=== PATIENT | male | born 1970 | race Caucasian/White ===

== ENCOUNTER → 2017-05-29 | Outpatient (CLI) | payer BC ==
[~2017-05-29] MED LIST: ALL100 PO; ALLO100T70 PO; AMO250 PO; ASP81 PO; ATOR10TA2 PO; ATR10 PO; CEP250 OP; DIP25 PO; IBU600 PO; LOSA-32 PO; LOSA-37 PO; LOSA100T62 PO; METO25TA93 PO; METXL50 PO; POTA25TA28 PO; ROS10 PO; VITORIN
--- NOTE | 2017-05-29 16:08 | RADIOLOGY IMAGING REPORT ---
FACILITY: [facility] PATIENT NAME: Robi Mauro : 1970 MR: [id number] V: [id number] EXAM DATE: ORDERING PHYSICIAN: SAMPSON OLSON TECHNOLOGIST: Location: [facility] Patient: Robi Mauro : 1970 Visit/Account:[id number] Date of Sevice: 05/29/2017 Venous Doppler ultrasound left lower extremity Indication: Leg pain after working out.. Comparison: None Available Findings: Duplex Doppler and color flow imaging was performed. The common femoral, femoral, and popl iteal veins are all patent and compressible with normal Doppler wave forms. There are normal respons es to augmentation. The posterior tibial and peroneal veins are patent in the calf. The proximal greater saphenous vein is also normal. Posterior aspect of the knee does show a Lewis's cyst and soft tissue measuring 3.7 x 1.1 x 1.0 cm. S ubcutaneous tissues are otherwise unremarkable. IMPRESSION: 1. No evidence of deep venous thrombosis of the left lower extremity. 2. Left Lewis's cyst. Report Dictated By: Charlie Wilson at 05/29/2017 4:02 PM Report E-Signed By: Charlie Wilson at 05/29/2017 4:03 PM WSN:[id number]
== END ==
LOC: US 15:11
PROVIDERS: ATTEND Orthopaedic Surgery
DX: M71.22 Synovial cyst of popliteal space [Baker], left knee (principal)

== ENCOUNTER → 2017-06-24 | Outpatient (CLI) | payer BC ==
[~2017-06-24] MED LIST changes: +ESCI20TA38 PO; +FLUT16SP19 NS; +LOSA25TA47 PO; +METO50TA19 PO
[2017-06-24 10:06] LABS: PLATELET COUNT, AUTOMATED 170 K/uL (150-450)
== END ==
LOC: LAB 09:54
PROVIDERS: ATTEND Emergency Medicine
DX: I10 Essential (primary) hypertension (principal); E83.52 Hypercalcemia; I25.10 Atherosclerotic heart disease of native coronary artery without angina pectoris; R25.2 Cramp and spasm
CPT/HCPCS: 36415; 82306; 82310; 82465; 83718; 83970; 84443; 84478; 85025

== ENCOUNTER → 2017-07-07 | Outpatient (CLI) | payer BC ==
[~2017-07-07] MED LIST changes: +ESCI10TA8 PO; +EZET10TA41 PO; +LOSA100T67 PO; +POTA-35 PO
== END ==
LOC: LAB 10:09
PROVIDERS: ATTEND Emergency Medicine
DX: E78.5 Hyperlipidemia, unspecified (principal)
CPT/HCPCS: 36415; 82465; 83718; 84478

== ENCOUNTER → 2017-07-21 | Outpatient (CLI) | payer BC | LOC: LAB 11:13 | PROVIDERS: ATTEND Emergency Medicine | DX: R14.0 Abdominal distension (gaseous) (principal) | CPT/HCPCS: 36415; 82784; 83516 ==

== ENCOUNTER 2017-11-24 12:13 | Emergency (ER) | payer BC ==
[~2017-11-24 12:13] MED LIST changes: +BENZ100C4 PO; +EVOL420W SUBQ; -LOSA100T67 PO; +LOSA100T69 PO; +OMEP40CA48 PO; +PRED-1 PO; +RAME8TAB43 PO; +ZALE5CAP PO
--- NOTE | 2017-11-24 12:36 | ER Report ---
History and Physical Time Seen By MD: 12:33 Hx. of Stated Complaint: PT REPORTS CHEST PAIN THAT STARTED AT 0200, TOOK 4 BABY ASPIRIN HPI/ROS CHIEF COMPLAINT: Chest pain HISTORY OF PRESENT ILLNESS: This is a 47-year-old male presents to the emergency department for chest pain. 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 Patient states that he did not become diaphoretic, no nausea or vomiting. Patient denies visual changes. He states that he does not feel that this is cardiac, he feels that this is more anxiety however with his cardiac history [facility] he decided to come in for further evaluation after he finished his shift. Patient denies chest pain or shortness of breath at this time. No recent illnesses. Patient states he was working out yesterday, vigorously with no chest pain or shortness of breath. REVIEW OF SYSTEMS: Constitutional: No fever, no chills. Eyes: No discharge. ENT: No sore throat. Cardiovascular: As above. Respiratory: No cough, no shortness of breath. Gastrointestinal: No abdominal pain, no vomiting. Genitourinary: No hematuria. Musculoskeletal: No back pain. Skin: No rashes. Neurological: No headache. Allergies: Coded Allergies: JEFFRY Inhibitors (Verified Allergy, Unknown, COUGH, 11/24/17) Home Meds Active Scripts Metoprolol Succinate (METOPROLOL SUCCINATE) 50 Mg Tab.er.24h, 1 TAB PO QDAY, #14 TAB 0 Refills Prov:VALERY ARREAGA MD 06/26/17 Allopurinol (ALLOPURINOL) 100 Mg Tablet, 100 MG PO PRN, #90 TAB 0 Refills Prov:VALERY ARREAGA MD 06/24/17 Reported Medications Potassium Citrate (POTASSIUM CITRATE) 10 Meq Tablet.er, 10 MEQ PO DAILY 06/27/17 Ezetimibe (ZETIA) 10 Mg Tablet, 10 MG PO DAILY, TAB 06/27/17 Escitalopram Oxalate (ESCITALOPRAM OXALATE) 10 Mg Tablet, 10 MG PO DAILY, TAB 06/27/17 Atorvastatin (LIPITOR (OR EQUIV)) 10 Mg Tab, 10 MG PO QHS 05/27/11 Aspirin (Childrens Chewable Aspirin) 81 Mg Chew, 81 MG PO QDAY 01/25/10 Discontinued Scripts Evolocumab (Repatha Pushtronex) 420 Mg/3.5 Ml Wear.injct, 420 MG SUBQ Q4WK, #3 EA 1 Refill Prov:VALERY ARREAGA MD 10/24/17 Zaleplon (SONATA) 5 Mg Capsule, 5 MG PO QHS, #30 CAPSULE 1 -2 tabs po qhs Prov:VALERY ARREAGA MD 10/06/17 Omeprazole (OMEPRAZOLE) 40 Mg Capsule.dr, 40 MG PO QDAY, #30 CAP Prov:VALERY ARREAGA MD 09/02/17 Benzonatate 100 Mg Cap (TESSALON PERLE 100 MG CAP) 100 Mg Capsule, 100 MG PO TID, #15 CAP Prov:VALERY ARREAGA MD 09/02/17 Prednisone 10 Mg Tab (PREDNISONE 10 MG TAB) 10 Mg Tablet, 4 TAB PO QDAY, #16 TAB Prov:VALERY ARREAGA MD 09/02/17 Fluticasone Prop 50 Mcg Ns (FLONASE 50 MCG NS) 16 Gm [place].susp, 2 SPRAYS NS QDAY, #1 BOT 3 Refills Prov:VALERY ARREAGA MD 06/24/17 Past Medical/Surgical History The patient has a past medical and surgical history of [facility] 2005, 2 stents placed, hypertension, hypercholesterolemia which are treated with medications at this time, orthopedic surgeries on knees and shoulder, appendectomy. Reviewed Nurses Notes: Yes Hx Smoking: No Smoking Status: Never Smoker Exposure to Second Hand Smoke?: Yes (mother smoked) Hx Substance Use Disorder: No Hx Alcohol Use: Yes (WEEKLY) Constitutional Vital Sign - Last 24 Hours 11/24/17 11/24/17 11/24/17 11/24/17 12:15 12:15 12:28 12:30 Temp 98.5 Pulse 84 79 Resp 16 7 B/P (MAP) 146/88 (107) 146/88 127/78 (94) Pulse Ox 94 93 O2 Delivery Room Air 11/24/17 11/24/17 11/24/17 11/24/17 12:43 12:58 13:00 13:13 Pulse 74 73 74 Resp 14 15 B/P (MAP) 128/81 (97) Pulse Ox 92 89 88 11/24/17 11/24/17 11/24/1718 13:28 13:30 13:43 13:48 Pulse 74 71 71 Resp 13 17 8 B/P (MAP) 120/77 (91) Pulse Ox 88 89 88 11/24/17 11/24/17 14:00 14:03 Pulse 68 Resp 22 B/P (MAP) 123/77 (92) 111/76 (88) Pulse Ox 93 Physical Exam General Appearance: The patient is alert, has no immediate need for airway protection and no signs of toxicity. Eyes: Pupils equal and round no pallor or injection. ENT, Mouth: Mucous membranes are moist. Respiratory: There are no retractions, lungs are clear to auscultation. Cardiovascular: Regular rate and rhythm, no murmurs, clicks or rubs. Gastrointestinal: Abdomen is soft and non tender, no masses, bowel sounds normal. Neurological: Alert and oriented 4. Moving all extremities. Following all com mands. No focal neuro deficits. Skin: Warm and dry, no rashes. Musculoskeletal: Neck is supple non tender. Extremities are nontender, nonswollen and have full range of motion. DIFFERENTIAL DIAGNOSIS: After history and physical exam differential diagnosis was considered for chest pain including but not limited to myocardial ischemia, pericarditis pulmonary embolus, chest wall pain, pleural inflammation and pulmonary infectious causes. Medical Decision Making Data Points Result Diagram: 11/24/17 1225 11/24/17 1225 Laboratory Hematology Test 11/24/17 12:25 Red Blood Count 5.76 M/uL (4.00-5.60) Mean Corpuscular Volume 85.0 fL (80.0-96.0) Mean Corpuscular Hemoglobin 29.3 pg (26.0-33.0) Mean Corpuscular Hemoglobin Concent 34.4 g/dL (32.0-36.0) Red Cell Distribution Width 13.9 % (11.5-14.5) Mean Platelet Volume 8.4 fL (7.2-11.1) Neutrophils (%) (Auto) 65.2 % (39.4-72.5) Lymphocytes (%) (Auto) 27.1 % (17.6-49.6) Monocytes (%) (Auto) 4.9 % (4.1-12.4) Eosinophils (%) (Auto) 2.4 % (0.4-6.7) Basophils (%) (Auto) 0.4 % (0.3-1.4) Nucleated RBC Relative Count (auto) 0.2 /100WBC Neutrophils # (Auto) 4.7 K/uL (2.0-7.4) Lymphocytes # (Auto) 2.0 K/uL (1.3-3.6) Monocytes # (Auto) 0.4 K/uL (0.3-1.0) Eosinophils # (Auto) 0.2 K/uL (0.0-0.5) Basophils # (Auto) 0.0 K/uL (0.0-0.1) Nucleated RBC Absolute Count (auto) 0.01 K/uL Sodium Level 138 mmol/L (137-145) Potassium Level 4.0 mmol/L (3.5-5.0) Chloride Level 101 mmol/L (98-107) Carbon Dioxide Level 26 mmol/L (22-30) Blood Urea Nitrogen 13 mg/dl (9-21) Creatinine 0.90 mg/dl (0.66-1.25) Glomerular Filtration Rate Calc > 60.0 Random Glucose 113 mg/dl (75-110) Calcium Level 9.7 mg/dl (8.4-10.2) Total Bilirubin 1.0 mg/dl (0.2-1.3) Aspartate Amino Transf (AST/SGOT) 30 U/L (0-35) Alanine Aminotransferase (ALT/SGPT) 41 U/L (0-56) Alkaline Phosphatase 65 U/L (0-126) Troponin I < 0.012 ng/ml Total Protein 7.9 g/dl (6.3-8.2) Albumin 4.7 g/dl (3.5-5.0) Chemistry Test 11/24/17 12:25 White Blood Count 7.2 k/uL (4.5-11.0) Red Blood Count 5.76 M/uL (4.00-5.60) Hemoglobin 16.9 g/dL (14.0-18.0) Hematocrit 49.0 % (42.0-52.0) Mean Corpuscular Volume 85.0 fL (80.0-96.0) Mean Corpuscular Hemoglobin 29.3 pg (26.0-33.0) Mean Corpuscular Hemoglobin Concent 34.4 g/dL (32.0-36.0) Red Cell Distribution Width 13.9 % (11.5-14.5) Platelet Count 202 K/uL (150-450) Mean Platelet Volume 8.4 fL (7.2-11.1) Neutrophils (%) (Auto) 65.2 % (39.4-72.5) Lymphocytes (%) (Auto) 27.1 % (17.6-49.6) Monocytes (%) (Auto) 4.9 % (4.1-12.4) Eosinophils (%) (Auto) 2.4 % (0.4-6.7) Basophils (%) (Auto) 0.4 % (0.3-1.4) Nucleated RBC Relative Count (auto) 0.2 /100WBC Neutrophils # (Auto) 4.7 K/uL (2.0-7.4) Lymphocytes # (Auto) 2.0 K/uL (1.3-3.6) Monocytes # (Auto) 0.4 K/uL (0.3-1.0) Eosinophils # (Auto) 0.2 K/uL (0.0-0.5) Basophils # (Auto) 0.0 K/uL (0.0-0.1) Nucleated RBC Absolute Count (auto) 0.01 K/uL Glomerular Filtration Rate Calc > 60.0 Calcium Level 9.7 mg/dl (8.4-10.2) Total Bilirubin 1.0 mg/dl (0.2-1.3) Aspartate Amino Transf (AST/SGOT) 30 U/L (0-35) Alanine Aminotransferase (ALT/SGPT) 41 U/L (0-56) Alkaline Phosphatase 65 U/L (0-126) Troponin I < 0.012 ng/ml Total Protein 7.9 g/dl (6.3-8.2) Albumin 4.7 g/dl (3.5-5.0) EKG/Imaging EKG Interpretation 12 lead EKG: Time of EKG 1220. Rhythm: Normal sinus rhythm, ventricular rate 79 BPM. [place]: normal QRS: normal ST segments: No ST elevation or depression identified. Compared to the 12/26/2015 EKG the current EKG is regular with no concerning findings, the PVC EKG showing multifocal PVCs with a questionable infarct. Previous infarct in 2005. Imaging Location: [facility] Patient: Robi Mauro : 1970 Visit/Account:[id number] Date of Sevice: 11/24/2017 Exam type: CHEST PA AND LAT History: chest tightness/pressure, sob Comparison: December 26, 2015. Findings: The lungs are free of acute effusions and the tracer edema. Cardiac silhouette is normal in size. The trachea is midline. There are moderate spondylotic changes in the thoracic spine with mild midthoracic compression fractures that appear stable IMPRESSION: 1. No acute cardiac pulmonary process seen Report Dictated By: Melina Almodovar MD at 11/24/2017 1:44 PM Report E-Signed By: Melina Almodovar MD at 11/24/2017 1:44 PM WSN:[email or web address] ED Course/Re-evaluation Clinical Indication for ER IV: IV Access ED Course The patient was admitted to a room. A history of physical obtained. Differential diagnoses were considered. An IV was started. A CBC, CMP and troponin were obtained. CBC unremarkable, negative troponin. Two-view chest x-ray was negative for any acute cardiopulmonary process. As the patient's pain lasted roughly a less than a minutes at 2:00 in the morning, the patient did take 4 baby aspirin at this time, patient's EKG and lab studies are unremarkable negative troponin do not think that we repeat his troponin at this time, do not feel that this is ACS, I think this is anxiety induced. Patient states he was feeling very anxious last night. However he stated with his history he decided to come in for further evaluation. Patient was pain-free all morning, had no other associated symptoms, no diaphoresis or shortness of breath, no visual changes. The patient will return should he develop any additional chest pain. Patient had no other questions or concerns at this time and was discharged home. He was also encouraged to follow-up within the next 1-2 weeks with his primary care provider and contact cardiology. Patient expressed understanding. Decision to Disposition Date: Nov 24, 2017 Decision to Disposition Time: 13:57 Depart Departure Latest Vital Signs Vital Signs Date Time Temp Pulse Resp B/P (MAP) Pulse Ox O2 Delivery O2 Flow Rate FiO2 11/24/17 14:03 68 22 111/76 (88) 93 11/24/17 12:15 98.5 Room Air Impression: Primary Impression: Chest pain of uncertain etiology Condition: Improved Disposition: HOME OR SELF-CARE Referrals: VALERY ARREAGA MD (PCP) 2 Weeks Patient Instructions: Anxiety (ED), Chest Pain (ED) Additional Instructions: I believe that your chest pain was anxiety related. Be sure to schedule a follow up appointment within the next 1-2 weeks for follow up. 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 You troponin was negative, ekg showing no concerning findings. Be sure to drink plenty of fluids. Get plenty of rest. Try to find an outlet for your stress. Return to the ED for any other concerns or worsening symptoms. CHARLI DORADO HEAD REFRIGERATION ENGINEER-BC Nov 24, 2017 12:36
[2017-11-24 12:38] LABS: PLATELET COUNT, AUTOMATED 202 K/uL (150-450)
--- NOTE | 2017-11-24 12:38 | EKG ---
FACILITY: [facility] PATIENT NAME: REAL BARON : [id number] MR: [id number] V: [id number] EXAM DATE: ORDERING PHYSICIAN: GWEN NGO TECHNOLOGIST: NICOLE Test Reason : CP Blood Pressure : / mmHG Vent. Rate : 079 BPM Atrial Rate : 079 BPM P-R Int : 156 ms QRS Dur : 086 ms QT Int : 386 ms P-R-T Axes : 054 051 044 degrees QTc Int : 442 ms Normal sinus rhythm Normal ECG When compared with ECG of 26-DEC-2015 18:01, No significant change was found Confirmed by KRISTEN ROBBINS ([id number]) on 11/25/2017 6:38:06 AM Referred By: JENI Confirmed By:KRISTEN ROBBINS
[2017-11-24] MEDS ORDERED: ASPIRIN 81 MG CHEW PO ONE (12:40)
--- NOTE | 2017-11-24 13:50 | RADIOLOGY IMAGING REPORT ---
FACILITY: PATIENT NAME: Robi Mauro : 1970 MR: [id number] V: [id number] EXAM DATE: ORDERING PHYSICIAN: GWEN NGO TECHNOLOGIST: Location: [facility] [place] Patient: Robi Mauro : 1970 Visit/Account:[id number] Date of Sevice: 11/24/2017 Exam type: CHEST PA AND LAT History: chest tightness/pressure, sob Comparison: December 26, 2015. Findings: The lungs are free of acute effusions and the tracer edema. Cardiac silhouette is normal in size. T he trachea is midline. There are moderate spondylotic changes in the thoracic spine with mild midtho racic compression fractures that appear stable IMPRESSION: 1. No acute cardiac pulmonary process seen Report Dictated By: Melina Almodovar MD at 11/24/2017 1:44 PM Report E-Signed By: Melina Almodovar MD at 11/24/2017 1:44 PM WSN:[email or web address]
[2017-11-24 14:03] VITALS: BP 111/76
== END 2017-11-24 14:08 | disposition home or self-care (01) ==
LOC: ER 12:13
DX: R07.89 Other chest pain (principal)
CPT/HCPCS: 71046; 82040; 82247; 82310; 82374; 82435; 82565; 82947; 84075; 84132; 84155; 84295; 84450; 84460; 84484; 84520; 85025; 93005; 99284

== ENCOUNTER 2018-01-10 03:02 | Emergency (ER) | payer BC ==
--- NOTE | 2018-01-10 03:09 | ER Report ---
History and Physical Time Seen By MD: 03:09 Hx. of Stated Complaint: Alcohol indoxication/ assisted clearance HPI/ROS CHIEF COMPLAINT: Chest pain HISTORY OF PRESENT ILLNESS: Patient is a 47-year-old male who is brought in by [place] [employer] for medical clearance for suspected DUI. Rest the patient started complaining of chest pain he does have a history of [facility] in the past. Patient states the pain began approximately 2 hours ago states no shortness of breath but states pain radiates to the left arm. States feels similar to his prior chest pain equivalent. He is a nonsmoker. He does admit to drinking "a few beers this evening". He denies any fever or infectious symptoms. She had a recent evaluation in the emergency department for chest pain which was negative. REVIEW OF SYSTEMS: Constitutional: No fever, no chills. Eyes: No discharge. ENT: No sore throat. Cardiovascular: Chest pain Respiratory: No cough, no shortness of breath. Gastrointestinal: No abdominal pain, no vomiting. Genitourinary: No hematuria. Musculoskeletal: No back pain. Skin: No rashes. Neurological: No headache. Allergies: Coded Allergies: JEFFRY Inhibitors (Verified Allergy, Unknown, COUGH, 11/24/17) Home Meds Active Scripts Metoprolol Succinate (METOPROLOL SUCCINATE) 50 Mg Tab.er.24h, 1 TAB PO QDAY, #14 TAB 0 Refills Prov:VALERY ARREAGA MD 06/26/17 Allopurinol (ALLOPURINOL) 100 Mg Tablet, 100 MG PO PRN, #90 TAB 0 Refills Prov:VALERY ARREAGA MD 06/24/17 Reported Medications Potassium Citrate (POTASSIUM CITRATE) 10 Meq Tablet.er, 10 MEQ PO DAILY 06/27/17 Ezetimibe (ZETIA) 10 Mg Tablet, 10 MG PO DAILY, TAB 06/27/17 Escitalopram Oxalate (ESCITALOPRAM OXALATE) 10 Mg Tablet, 10 MG PO DAILY, TAB 06/27/17 Atorvastatin (LIPITOR (OR EQUIV)) 10 Mg Tab, 10 MG PO QHS 05/27/11 Aspirin (Childrens Chewable Aspirin) 81 Mg Chew, 81 MG PO QDAY 01/25/10 Past Medical/Surgical History Past medical history for coronary artery disease, hyperlipidemia, hypertension, myocardial infarction in 2005. History of peptic ulcer disease, kidney stones past surgical history for appendectomy in 1996, umbilical hernia repair in 1998 the 2009. History of spinal surgery in 2000 and 2011 Hx Smoking: No Smoking Status: Never Smoker Exposure to Second Hand Smoke?: Yes (mother smoked) Hx Substance Use Disorder: No Hx Alcohol Use: Yes (WEEKLY) Constitutional Vital Sign - Last 24 Hours 01/10/18 01/10/18 01/10/18 03:03 03:20 03:30 Temp 99.3 Pulse 102 102 106 Resp 20 20 12 B/P (MAP) 152/101 132/89 (103) 137/108 (118) Pulse Ox 99 91 91 O2 Delivery Room Air Room Air Room Air Physical Exam General Appearance: The patient is alert, has no immediate need for airway protection and no signs of toxicity. Patient appears somewhat intoxicated. Eyes: Pupils equal and round no pallor mild conjunctival injection. Fatigable horizontal nystagmus on exam. ENT, Mouth: Mucous membranes are moist. Respiratory: There are no retractions, lungs are clear to auscultation. Cardiovascular: Regular rate and rhythm. Gastrointestinal: Abdomen is soft and non tender, no masses, bowel sounds normal. Neurological: Awake and alert Skin: Warm and dry, no rashes. Musculoskeletal: Neck is supple non tender. Extremities are nontender, nonswollen and have full range of motion. Medical Decision Making Data Points Result Diagram: 01/10/18 0320 01/10/18 032 Laboratory Hematology Test 01/10/18 03:20 Red Blood Count 6.02 M/uL (4.00-5.60) Mean Corpuscular Volume 85.4 fL (80.0-96.0) Mean Corpuscular Hemoglobin 29.6 pg (26.0-33.0) Mean Corpuscular Hemoglobin Concent 34.6 g/dL (32.0-36.0) Red Cell Distribution Width 13.5 % (11.5-14.5) Mean Platelet Volume 8.8 fL (7.2-11.1) Neutrophils (%) (Auto) 58.9 % (39.4-72.5) Lymphocytes (%) (Auto) 32.0 % (17.6-49.6) Monocytes (%) (Auto) 5.1 % (4.1-12.4) Eosinophils (%) (Auto) 3.8 % (0.4-6.7) Basophils (%) (Auto) 0.2 % (0.3-1.4) Nucleated RBC Relative Count (auto) 0.3 /100WBC Neutrophils # (Auto) 5.9 K/uL (2.0-7.4) Lymphocytes # (Auto) 3.2 K/uL (1.3-3.6) Monocytes # (Auto) 0.5 K/uL (0.3-1.0) Eosinophils # (Auto) 0.4 K/uL (0.0-0.5) Basophils # (Auto) 0.0 K/uL (0.0-0.1) Nucleated RBC Absolute Count (auto) 0.03 K/uL Prothrombin Time 13.1 seconds (12.0-14.4) Prothromb Time International Ratio 0.99 Activated Partial Thromboplast Time 30 seconds (23-35) Sodium Level 137 mmol/L (137-145) Potassium Level 3.6 mmol/L (3.5-5.0) Chloride Level 99 mmol/L (98-107) Carbon Dioxide Level 25 mmol/L (22-30) Blood Urea Nitrogen 17 mg/dl (9-21) Creatinine 1.20 mg/dl (0.66-1.25) Glomerular Filtration Rate Calc > 60.0 Random Glucose 118 mg/dl (75-110) Calcium Level 9.4 mg/dl (8.4-10.2) Total Bilirubin 0.5 mg/dl (0.2-1.3) Aspartate Amino Transf (AST/SGOT) 36 U/L (0-35) Alanine Aminotransferase (ALT/SGPT) 47 U/L (0-56) Alkaline Phosphatase 71 U/L (0-126) Troponin I < 0.012 ng/ml B-Type Natriuretic Peptide < 5 pg/ml (0-100) Total Protein 8.5 g/dl (6.3-8.2) Albumin 5.0 g/dl (3.5-5.0) Chemistry Test 01/10/18 03:20 White Blood Count 10.0 k/uL (4.5-11.0) Red Blood Count 6.02 M/uL (4.00-5.60) Hemoglobin 17.8 g/dL (14.0-18.0) Hematocrit 51.4 % (42.0-52.0) Mean Corpuscular Volume 85.4 fL (80.0-96.0) Mean Corpuscular Hemoglobin 29.6 pg (26.0-33.0) Mean Corpuscular Hemoglobin Concent 34.6 g/dL (32.0-36.0) Red Cell Distribution Width 13.5 % (11.5-14.5) Platelet Count 219 K/uL (150-450) Mean Platelet Volume 8.8 fL (7.2-11.1) Neutrophils (%) (Auto) 58.9 % (39.4-72.5) Lymphocytes (%) (Auto) 32.0 % (17.6-49.6) Monocytes (%) (Auto) 5.1 % (4.1-12.4) Eosinophils (%) (Auto) 3.8 % (0.4-6.7) Basophils (%) (Auto) 0.2 % (0.3-1.4) Nucleated RBC Relative Count (auto) 0.3 /100WBC Neutrophils # (Auto) 5.9 K/uL (2.0-7.4) Lymphocytes # (Auto) 3.2 K/uL (1.3-3.6) Monocytes # (Auto) 0.5 K/uL (0.3-1.0) Eosinophils # (Auto) 0.4 K/uL (0.0-0.5) Basophils # (Auto) 0.0 K/uL (0.0-0.1) Nucleated RBC Absolute Count (auto) 0.03 K/uL Prothrombin Time 13.1 seconds (12.0-14.4) Prothromb Time International Ratio 0.99 Activated Partial Thromboplast Time 30 seconds (23-35) Glomerular Filtration Rate Calc > 60.0 Calcium Level 9.4 mg/dl (8.4-10.2) Total Bilirubin 0.5 mg/dl (0.2-1.3) Aspartate Amino Transf (AST/SGOT) 36 U/L (0-35) Alanine Aminotransferase (ALT/SGPT) 47 U/L (0-56) Alkaline Phosphatase 71 U/L (0-126) Troponin I < 0.012 ng/ml B-Type Natriuretic Peptide < 5 pg/ml (0-100) Total Protein 8.5 g/dl (6.3-8.2) Albumin 5.0 g/dl (3.5-5.0) Coagulation Test 11/10/18 03:20 Prothrombin Time 13.1 seconds Prothromb Time International Ratio 0.99 Activated Partial Thromboplast Time 30 seconds EKG/Imaging EKG Interpretation EKG shows borderline sinus tachycardia ventricular rate of 105 bpm otherwise normal Monitor Interpretation: Normal Sinus Rhythm Imaging FACILITY: [facility] [place] PATIENT NAME: Robi Mauro : 1970 MR: [id number] V: [id number] EXAM DATE: ORDERING PHYSICIAN: ORACIO GALICIA TECHNOLOGIST: Location: [facility] [place] Patient: Robi Mauro : 1970 Visit/Account:[id number] Date of Sevice: 01/10/2018 AP CHEST 01/10/2018 3:40 AM. INDICATION: Chest pain. COMPARISON: 11/24/2017. FINDINGS: Lungs are well-expanded. There is no consolidation. No pleural effusion or pneum othorax. Heart size is normal. IMPRESSION: No acute abnormality. Report Dictated By: Flaco Espino MD at 01/10/2018 3:49 AM Report E-Signed By: Flaco Espino MD at 01/10/2018 3:51 AM WSN:[id number] ED Course/Re-evaluation Clinical Indication for ER IV: IV Access ED Course 01/10/2018 3:16:53 am plan at this time will be to perform cardiac workup with troponin EKG along with chest x-ray. We'll give patient aspirin. I suspicion for acute coronary syndrome is low and feel that his chest pain may be anxiety related with his current situation being detained for DUI. Nevertheless we will perform a medical screening exam. Decision to Disposition Date: Jan 10, 2018 Decision to Disposition Time: 04:00 Depart Departure Latest Vital Signs Vital Signs Date Time Temp Pulse Resp B/P (MAP) Pulse Ox O2 Delivery O2 Flow Rate FiO2 01/10/18 03:30 106 12 137/108 (118) 91 Room Air 01/10/18 03:03 99.3 Impression: Primary Impression: Non-cardiac chest pain Condition: Improved Disposition: HOME OR SELF-CARE Referrals: VALERY ARREAGA MD (PCP) Patient Instructions: Alcohol Intoxication (ED), Noncardiac Chest Pain (DC) ORACIO GALICIA MD Jan 10, 2018 03:09
[2018-01-10] MEDS ORDERED: ASPIRIN 81 MG CHEW PO ONE (03:10)
[2018-01-10 03:30] VITALS: BP 137/108
--- NOTE | 2018-01-10 03:34 | EKG ---
FACILITY: [facility] PATIENT NAME: REAL BARON : [id number] MR: [id number] V: [id number] EXAM DATE: ORDERING PHYSICIAN: ORACIO GALICIA TECHNOLOGIST: MARY ANNE Beverly Reason : Blood Pressure : / mmHG Vent. Rate : 105 BPM Atrial Rate : 105 BPM P-R Int : 150 ms QRS Dur : 080 ms QT Int : 316 ms P-R-T Axes : 031 036 028 degrees QTc Int : 417 ms Sinus tachycardia Artifact in multiple leads - repeat if needed Confirmed by ANAND ELIAS ([id number]) on 01/10/2018 6:17:23 AM Referred By: Confirmed By:ANAND ELIAS
[2018-01-10 03:43] LABS: INR 0.99; PLATELET COUNT, AUTOMATED 219 K/uL (150-450)
--- NOTE | 2018-01-10 03:55 | RADIOLOGY IMAGING REPORT ---
FACILITY: [facility] - [place] [place] PATIENT NAME: Robi Mauro : 1970 MR: [id number] V: [id number] EXAM DATE: ORDERING PHYSICIAN: ORACIO GALICIA TECHNOLOGIST: [place] [facility] [place] Patient: Robi Mauro : 1970 Visit/Account:[id number] Date of Sevice: 01/10/2018 AP CHEST 01/10/2018 3:40 AM. INDICATION: Chest pain. COMPARISON: 11/24/2017. FINDINGS: Lungs are well-expanded. There is no consolidation. No pleural effusion or pneumothorax. Heart size i s normal. IMPRESSION: No acute abnormality. Report Dictated By: Flaco Espino MD at 01/10/2018 3:49 AM Report E-Signed By: Flaco Espino MD at 01/10/2018 3:51 AM WSN:[id number]
== END 2018-01-10 04:05 ==
LOC: ER 03:16
DX: R07.89 Other chest pain (principal); F10.10 Alcohol abuse, uncomplicated
CPT/HCPCS: 71045; 82040; 82247; 82310; 82374; 82435; 82565; 82947; 83880; 84075; 84132; 84155; 84295; 84450; 84460; 84484; 84520; 85025; 85610; 85730; 93005; 99284

== ENCOUNTER → 2018-01-10 | Outpatient (REF) | LOC: LAB 03:08 | PROVIDERS: ATTEND Nurse Practitioner | DX: Z02.83 Encounter for blood-alcohol and blood-drug test (principal) | CPT/HCPCS: 36415; 99001 ==